=== PATIENT | female | born 1970 | race Two or more races ===

== ENCOUNTER 2017-11-27 09:54 | Emergency (ER) | payer OTHER ==
[2017-11-27 10:01] VITALS: RESP 20; O2SAT 99
--- NOTE | 2017-11-27 10:19 | C.PDOC ---
History Of Present Illness 47 year old female accompanied by her presents to the ED after a syncopal episode. Patient reports she was at her dentist office waiting to be seen when she started feeling hot and then passed out. states she was standing waiting to sign in when she passed out and hit the back of her head against the floor, he also states patient has LOC for approximately less than a minute. Patient reports when she regained consciousness she was alert, oriented and aware where she was. Patient currently c/o pain to the back of her head due to the fall. Patient denies Chest pain, SOB, dizziness, blurry vision, headache , nausea, vomit, fever, weakness, numbness. Patient's LMP was on October. Chief Complaint (Nursing): Syncope History Per: Patient, Family History/Exam Limitations: no limitations Onset/Duration Of Symptoms: Hrs Current Symptoms Are (Timing): Gone Number Of Syncopal Episodes: 1 Activity At Onset Of Symptoms: Standing Associated Symptoms Preceding Syncopal Episode: No Predromal Symptoms (Sudden Onset) Seizure Or Post-ictal Symptoms: None Possible Causative Factor(s): Lightheaded W/Standing Fall Associated With With Symptoms: Yes Severity: None Recent travel outside of the [place]: No Additional History Per: Patient, Family Past Medical History Reviewed: Historical Data, Nursing Documentation, Vital Signs Vital Signs: Last Vital Signs Temp 98.8 F 11/27/17 12:06 Pulse 69 11/27/17 12:06 Resp 20 11/27/17 12:06 BP 134/67 11/27/17 12:06 Pulse Ox 99 11/27/17 15:14 - Medical History PMH: No Chronic Diseases Surgical History: No Surg Hx Family History: States: Hypertension (father) - Social History Hx Tobacco Use: No Review Of Systems Constitutional: Negative for: Fever, Chills Eyes: Negative for: Vision Change Cardiovascular: Negative for: Chest Pain, Palpitations Respiratory: Negative for: Cough, Shortness of Breath Gastrointestinal: Negative for: Nausea, Vomiting, Abdominal Pain Skin: Negative for: Rash Neurological: Positive for: Headache. Negative for: Weakness, Numbness, Altered Mental Status, Dizziness Physical Exam - Physical Exam Appears: Non-toxic, No Acute Distress Skin: Normal Color, Warm, Dry Head: Normacephalic, Swelling (occipital area ) Eye(s): bilateral: Normal Inspection Nose: No Discharge, No Deformity Oral Mucosa: Moist Neck: Normal ROM, Supple Chest: Symmetrical Cardiovascular: Rhythm Regular, No Murmur Respiratory: Normal Breath Sounds, No Rales, No Rhonchi, No Wheezing Gastrointestinal/Abdominal: Soft, No Tenderness Back: Normal Inspection Extremity: Normal ROM, No Pedal Edema, No Calf Tenderness, No Swelling Neurological/Psych: Oriented x3 ED Course And Treatment - Laboratory Results Result Diagrams: 11/27/17 11:19 11/27/17 11:19 O2 Sat by Pulse Oximetry: 99 (On RA) Pulse Ox Interpretation: Normal Progress Note: Plan: - EKG. - Blood work. - IV fluids. - UA Medical Decision Making Medical Decision Making: Accession No. : [id number] Patient Name / ID : HOA LATIF / [id number] Exam Date : 11/27/2017 12:47:19 ( Approved ) Study Comment : Sex / Age : F / 47Y Creator : Arabella Mcguire Dictator : Krista Stanford MD Time Clock Repairer : General Service Officer : Krista Stanford MD Approver2 : Report Date : 11/27/2017 12:49:19 My Comment : PROCEDURE: CT HEAD WITHOUT CONTRAST. HISTORY: syncope, fall with LOC COMPARISON: None available. TECHNIQUE: Axial computed tomography images were obtained through the head/brain without intravenous contrast. Radiation dose: Total exam DLP = 824.57 mGy-cm. This CT exam was performed using one or more of the following dose reduction techniques: Automated exposure control, adjustment of the mA and/or kV according to patient size, and/or use of iterative reconstruction technique. FINDINGS: HEMORRHAGE: No intracranial hemorrhage. BRAIN: No mass effect or edema. No atrophy or chronic microvascular ischemic changes.Please note that MRI with diffusion imaging is more sensitive in the detection of acute ischemic event. VENTRICLES: No hydrocephalus. CALVARIUM: Unremarkable. PARANASAL SINUSES: Unremarkable as visualized. No significant inflammatory changes. MASTOID AIR CELLS: Unremarkable as visualized. No inflammatory changes. OTHER FINDINGS: None. IMPRESSION: No acute intracranial pathology identified. Accession No. : [id number] Patient Name / ID : HOA LATIF / [id number] Exam Date : 11/27/2017 12:32:47 ( Approved ) Study Comment : Sex / Age : F / 47Y Creator : Concetta Boss Dictator : Concetta Boss Time Clock Repairer : General Service Officer : Concetta Boss Approver2 : Report Date : 11/27/2017 12:44:52 My Comment : HISTORY: syncope COMPARISON: No prior. FINDINGS: LUNGS: No active pulmonary disease. PLEURA: No significant pleural effusion identified, no pneumothorax apparent. CARDIOVASCULAR: Normal. OSSEOUS STRUCTURES: No significant abnormalities. VISUALIZED UPPER ABDOMEN: Normal. OTHER FINDINGS: None. IMPRESSION: No active disease. On re-evaluation, patient is asymptomatic, Orthostatic vitals WNL. Patient is stable to be d/c home with PMD follow up. Copies of labs and radiology reports were given to the patient. Disposition - Disposition Disposition: HOME/ ROUTINE Disposition Time: 15:13 Condition: STABLE Additional Instructions: Follow up with PMD within 1-2 days. Return to ED if feel worse. Instructions: Syncope (ED) Forms: [facility] [employer] ([employer]) - Clinical Impression Clinical Impression: Vasovagal syncope - PA / WELCOME DESK AGENT / Resident Statement MD/DO has reviewed & agrees with the documentation as recorded. - Scribe Statement The provider has reviewed the documentation as recorded by the Scribe Keny Justice All medical record entries made by the Scribe were at my direction and personally dictated by me. I have reviewed the chart and agree that the record accurately reflects my personal performance of the history, physical exam, medical decision making, and the department course for this patient. I have also personally directed, reviewed, and agree with the discharge instructions and disposition.
[2017-11-27] MEDS ORDERED: Sodium Chloride 0.9% 1,000 ML IV STA (10:31)
[2017-11-27 11:23] VITALS: PULSE 69
[2017-11-27 11:25] LABS: BASO # 0.1 K/uL (0.0-0.2); BASO % 1.1 % (0.0-2.0); EOS # 0.2 K/uL (0.0-0.7); HEMATOCRIT 36.7 % (34.0-47.0); LYMPH # 1.3 K/uL (1.0-4.3); LYMPH % 25.5 % (20.0-40.0); MEAN CORPUSCULAR HEMOGLOBIN 26.3 pg (27.0-31.0); MEAN CORPUSCULAR HGB CONC 32.9 g/dL (33.0-37.0); MEAN PLATELET VOLUME 8.7 fL (7.2-11.7); MONO # 0.3 K/uL (0.0-0.8); MONO % 6.6 % (0.0-10.0); RED CELL DISTRIBUTION WIDTH 15.5 % (11.5-14.5)
[2017-11-27 11:38] LABS: ALKALINE PHOSPHATASE 102 U/L (38-126); ALT/SGPT 38 U/L (9-52); AST/SGOT 25 U/L (14-36); BILIRUBIN,TOTAL 0.8 mg/dL (0.2-1.3); BLOOD UREA NITROGEN 9 mg/dL (7-17); CARBON DIOXIDE 26 mmol/L (22-30); CHLORIDE 99 mmol/L (98-107); GFR AFRICAN-AMERICAN > 60; GLUCOSE,RANDOM 143 mg/dL (65-105); POTASSIUM 3.3 mmol/L (3.6-5.2); SODIUM 134 mmol/L (132-148); TOTAL PROTEIN 8.2 g/dL (6.3-8.3)
[2017-11-27 11:46] LABS: INR 1.1
[2017-11-27 11:56] LABS: URINE BILIRUBIN NEGATIVE (NEGATIVE); URINE BLOOD 1+ (NEGATIVE); URINE COLOR Colorless (YELLOW); URINE GLUCOSE (UA) NORMAL (Normal); URINE KETONE NEGATIVE (NEGATIVE); URINE LEUKOCYTE ESTERASE NEG Leu/uL (Negative); URINE PROTEIN NEGATIVE (NEGATIVE); URINE UROBILINOGEN NORMAL mg/dL (0.2-1.0); WBC URINE < 1 /hpf (0-5)
[2017-11-27 12:01] LABS: RBC URINE 1 /hpf (0-3)
[2017-11-27 12:07] VITALS: BP 134/67; TEMP 98.8
--- NOTE | 2017-11-27 12:46 | RAD ---
HISTORY: syncope COMPARISON: No prior. FINDINGS: LUNGS: No active pulmonary disease. PLEURA: No significant pleural effusion identified, no pneumothorax apparent. CARDIOVASCULAR: Normal. OSSEOUS STRUCTURES: No significant abnormalities. VISUALIZED UPPER ABDOMEN: Normal. OTHER FINDINGS: None. IMPRESSION: No active disease.
--- NOTE | 2017-11-27 13:10 | CT ---
PROCEDURE: CT HEAD WITHOUT CONTRAST. HISTORY: syncope, fall with LOC COMPARISON: None available. TECHNIQUE: Axial computed tomography images were obtained through the head/brain without intravenous contrast. Radiation dose: Total exam DLP = 824.57 mGy-cm. This CT exam was performed using one or more of the following dose reduction techniques: Automated exposure control, adjustment of the mA and/or kV according to patient size, and/or use of iterative reconstruction technique. FINDINGS: HEMORRHAGE: No intracranial hemorrhage. BRAIN: No mass effect or edema. No atrophy or chronic microvascular ischemic changes.Please note that MRI with diffusion imaging is more sensitive in the detection of acute ischemic event. VENTRICLES: No hydrocephalus. CALVARIUM: Unremarkable. PARANASAL SINUSES: Unremarkable as visualized. No significant inflammatory changes. MASTOID AIR CELLS: Unremarkable as visualized. No inflammatory changes. OTHER FINDINGS: None. IMPRESSION: No acute intracranial pathology identified.
== END 2017-11-27 15:29 | disposition home or self-care (01) ==
LOC: C.ER 09:54
DX: R55 Syncope and collapse (principal)
CPT/HCPCS: 70450; 71010; 80053; 81001; 82550; 82553; 82948; 84484; 84703; 85025; 85610; 85730; 96360; 99285; J7040